=== PATIENT | male | born 1960 | race Caucasian/White ===

== ENCOUNTER 2022-07-15 08:00 | Outpatient (REF) | payer OTHER, SELFPAY ==
[2022-07-15 10:27] LABS: MANUAL DIFF FLAG NO
[2022-07-15 10:44] LABS: Basophils Percent Auto 0.5 % (0-2); Eosinophils Absolute Auto 0.1 X10*3/uL (0.0-0.4); Eosinophils Percent Auto 2.3 % (0-4); Hematocrit 47.6 % (42.0-52.0); Hemoglobin 16.1 g/dl (14.0-18.0); Imm Gran Abs Auto 0.02 X10*3/uL (0.00-0.03); Imm Gran Pct Auto 0.3 % (0.0-0.4); Lymphocytes Absolute Auto 1.5 X10*3/uL (1.2-4.9); Lymphocytes Percent Auto 26.4 % (20-40); Mean Corpuscular HGB Conc 33.8 g/dl (31.0-36.0); Mean Corpuscular Hemoglobin 30.3 pg (27.0-33.0); Mean Corpuscular Volume 89.6 fL (80.0-98.0); Mean Platelet Volume 9.5 fL (9.4-12.4); Monocytes Absolute Auto 0.5 X10*3/uL (0.1-1.2); Monocytes Percent Auto 9.4 % (2-11); Neutrophils Absolute Auto 3.5 x10*3/uL (2.0-8.3); Neutrophils Percent Auto 61.1 % (45-73); Platelet Count 235 X10*3/uL (160-400); Red Blood Count 5.31 X10*6/uL (4.60-5.80); Red Cell Distribution Width 12.4 % (11.0-16.0); White Blood Count 5.7 X10*3/uL (4.8-10.8)
[2022-07-15 10:46] LABS: Appearance Urine Clear; Color Urine Yellow; Glucose Urine UA Negative (Negative); Leukocyte Esterase Urine Negative (Negative); Nitrite Urine Negative (Negative); PH 5.5 (5.0-9.0); Specific Gravity - Urine 1.025 (1.005-1.025); Urine Blood Negative (Negative); Urine Ketones Negative (Negative); Urine Protein Negative (Neg-Trace)
[2022-07-15 11:00] LABS: Alanine Aminotransferase 19 U/L (0-40); Albumin Level 4.2 g/dL (3.5-5.0); Alkaline Phosphatase 62 U/L (39-117); Anion Gap 12 (12-20); Aspartate Amino Transferase 20 U/L (5-37); Bilirubin Total 1.4 mg/dL (0.0-1.0); Blood Urea Nitrogen 21 mg/dL (9-16); Calcium 9.2 mg/dL (8.4-10.2); Carbon Dioxide 27 mmol/L (22-29); Chloride 106 mmol/L (96-108); Cholesterol 252 mg/dL; Estimated Glomerular Filt Rate > 60; Glucose Fasting 89 mg/dL (60-99); HDL Cholesterol 56 mg/dL; LDL Cholesterol Calculated 177 mg/dl; Potassium 4.1 mmol/L (3.3-5.1); Sodium 141 mmol/L (135-145); Total Protein 6.4 g/dL (6.5-8.0); Triglycerides 95 mg/dL
[2022-07-15 11:19] LABS: Prostate Specific Antigen Scr 1.84 ng/mL (<0.05-4.0)
== END 2022-07-15 08:01 | disposition home or self-care (01) ==
LOC: HO.10HDL 08:00
PROVIDERS: Visit Provider Internal Medicine
DX: Z00.00 Encounter for general adult medical examination without abnormal findings (principal); Z12.5 Encounter for screening for malignant neoplasm of prostate
CPT/HCPCS: 36415; 80053; 80061; 81003; 84153; 85025

== ENCOUNTER 2023-03-20 12:14 | Day surgery (SDC) | payer OTHER, SELFPAY ==
--- NOTE | 2023-03-17 13:49 | P.CONAN_ITS ---
Documented by User: Stephanie Grove NP 03/17/23 13:50 HPI - Anesthesia Eval Consult details Narrative: 62yo M for Colonoscopy [facility] Past Medical History Medical History Kidney stones Surgical History Surgical History Hx of colonoscopy Social History Social History Patient Tobacco Use Status: Never used Tobacco Meds Allergies Allergy/AdvReac Type Severity Reaction Status Date / Time Penicillins Allergy Unknown Unknown Verified 03/16/23 14:12 Home Medications Medication Instructions Recorded Confirmed Last Taken Type No Known Home Meds 03/17/23 03/17/23 Unknown History Exam Exam Date and Time: March 17, 2023 134 Assessment and Plan Assessment Anesthesia Assessment: Chart Reviewed Documented by User: Margarita Moreau MD 03/20/23 13:17 [facility] Past Medical History Medical History Kidney stones Family History Family history of problems with anesthesia: No Surgical History Surgical History Hx of colonoscopy History of Problems with Anesthesia: No Social History Social History Patient Tobacco Use Status: Never used Tobacco Meds Allergies Allergy/AdvReac Type Severity Reaction Status Date / Time Penicillins Allergy Unknown Unknown Verified 03/16/23 14:12 Home Medications Medication Instructions Recorded Confirmed Last Taken Type No Known Home Meds 03/17/23 03/17/23 Unknown History Exam Height,Weight and Vital Signs: Height 5 ft 9 in Weight 86.183 kg Vital Signs Temp Pulse Resp BP Pulse Ox O2 Del Method 03/20/23 12:37 97.1 F 85 18 125/89 97 Room Air Airway Mallampati Class: II TM Dist: >3cm Neck ROM: Full Loose/Missing/Broken Teeth: Yes (Dental extractions. Crowns intact. Denies broken or loose teeth) Heart: RRR Lungs: CTAB Assessment and Plan Assessment Anesthesia Assessment: Anesthesia Plan Discussed Final Anesthetic Review Family History of Problems with Anesthesia: No History of Problems with Anesthesia: No NPO: Yes ASA Class: I Final Preanesthetic Review: No Changes in Pt Med Stat, Meds/Allgs Chart Reviewed, Consent Obtained/Reviewed and Anes Risks/Benef Reviewed Patient Risk: Low Procedure Risk: Low Assessment/Block/Sedation in SS: Assess/Block/Sedation-SS Anesthetic Plan Anesthetic Plan: MAC: Disposition: Standard PACU
[2023-03-20 12:23] VITALS: BMI 28.1
--- NOTE | 2023-03-20 12:29 | PC.NURSE ---
per pt, he spoke with [employer] library assistantreal estate sales manager services and he had uber transportation here and will have uber transportation home. text to Roseanne to confirm. Dr. Moreau aware and states pt can not uber home after anesthesia. Per pt, he has no other ride home. Dr. Moreau texted to Roseanne who is in meeting at this time
[2023-03-20 12:37] VITALS: BP 125/89; PULSE 85; RESP 18; TEMP 36.2; O2SAT 97
[2023-03-20 12:38] VITALS: BMI 28.1
[2023-03-20] MEDS: Lactated Ringers 1,000 ML 100 ML IVCONT (13:10)
--- NOTE | 2023-03-20 14:10 | PM.OP ---
Brief Operative Note Date of Service: 03/20/23 Pre-op diagnosis: Screening Post-op diagnosis: other (Diverticulosis) Procedure: Colonoscopy to the cecum and TI Surgeon: Maycol Eli MD Anesthesia: MAC Was an Threading Machine Feeder Automatic used for this Procedure?: No Estimated blood loss (mL): 0 Pathology: none sent Condition: stable Disposition: PACU
[2023-03-20 14:22] VITALS: BP 106/69; PULSE 90; RESP 20; TEMP 36.1; O2SAT 95
[2023-03-20 14:25] VITALS: BP 120/81; PULSE 80; RESP 20; TEMP 36.1; O2SAT 94
--- NOTE | 2023-03-20 23:21 | OP_ITS ---
DATE OF SERVICE: 03/20/2023 SURGEON: Maycol Eli MD INDICATIONS: The patient presents for evaluation of personal history of colon polyps, family history of colon cancer, and need for colorectal cancer screening. Full consent has been obtained from him for this, including risks of bleeding and perforation. PREOPERATIVE DIAGNOSIS: POSTOPERATIVE DIAGNOSIS: PROCEDURE PERFORMED: Colonoscopy to cecum and terminal ileum. ESTIMATED BLOOD LOSS: COMPLICATIONS: ANESTHESIA: Monitored anesthesia care. ASSISTANTS: SPECIMENS: PREOPERATIVE DIAGNOSES: Colorectal cancer screening, personal history of colon polyps, family history of colon cancer. POSTOPERATIVE DIAGNOSES: Colorectal cancer screening, personal history of colon polyps, family history of colon cancer, diverticulosis, and internal hemorrhoids. DESCRIPTION OF PROCEDURE: The patient was placed in the left lateral decubitus position. The digital rectal exam revealed no abnormalities. The Olympus video pediatric colonoscope was entered into the rectum and advanced easily to the cecum. Once in the cecum, I did identify normal-appearing cecal pouch with appendiceal orifice and a normal-appearing ileocecal valve. The terminal ileum was cannulated and appeared normal. The scope was withdrawn back in the colon. The entire cecum and ileocecal valve appeared normal. The scope was then slowly withdrawn assessing all mucosal surfaces carefully. Preparation was excellent. I did not visualize any sign of polyps, colitis, nor angiodysplasia. There was a mild amount of sigmoid diverticulosis. In the rectum, scope was retroflexed visualizing internal hemorrhoids, but no other pathology. The rectal mucosa appeared normal. The scope was straightened and withdrawn from the patient. He tolerated the procedure well and was returned to the recovery area in stable condition. IMPRESSION: 1. Diverticulosis. 2. Internal hemorrhoids. PLAN: I would recommend a repeat colonoscopy in 5 years for further screening and surveillance given his family history of colon cancer, and previous history of colon polyps. He will otherwise see me on a p.r.n. basis. MD BERENICE Villanueva/JOSÉ ANTONIO / [id number]
== END 2023-03-20 15:01 | disposition home or self-care (01) ==
PROVIDERS: PCP Internal Medicine; Visit Provider Internal Medicine
PROC: 0DJD8ZZ Inspection of Lower Intestinal Tract, Via Natural or Artificial Opening Endoscopic (ICD-10-PCS; CPT 45378; principal; 2023-03-20 13:40)
DX: Z12.11 Encounter for screening for malignant neoplasm of colon (principal); Z80.0 Family history of malignant neoplasm of digestive organs; Z86.010 Personal history of colon polyps; K57.30 Diverticulosis of large intestine without perforation or abscess without bleeding; K64.8 Other hemorrhoids; N20.0 Calculus of kidney; Z88.0 Allergy status to penicillin
CPT/HCPCS: 45378

== ENCOUNTER 2023-06-02 08:47 | Outpatient (REF) | payer OTHER, SELFPAY ==
[2023-06-02 10:55] LABS: Alanine Aminotransferase 19 U/L (0-40); Aspartate Amino Transferase 23 U/L (5-37); Cholesterol 232 mg/dL (<200); HDL Cholesterol 57 mg/dL (>40); LDL Cholesterol Calculated 158 mg/dL (<100); Triglycerides 87 mg/dL (<150)
== END 2023-06-02 08:48 | disposition home or self-care (01) ==
LOC: HO.LAB 08:47
PROVIDERS: PCP Internal Medicine; Visit Provider Internal Medicine
DX: M54.9 Dorsalgia, unspecified (principal); E78.00 Pure hypercholesterolemia, unspecified
CPT/HCPCS: 36415; 72100; 80061; 82550; 84450; 84460

== ENCOUNTER 2024-12-09 09:54 | Outpatient (REF) | payer OTHER, SELFPAY ==
[2024-12-09 11:07] LABS: MANUAL DIFF FLAG NO
[2024-12-09 11:56] LABS: Hematocrit 44.8 % (42.0-52.0); Hemoglobin 15.3 g/dl (14.0-18.0); Imm Gran Abs Auto 0.01 X10*3/uL (0.00-0.03); Imm Gran Pct Auto 0.2 % (0.0-0.4); Lymphocytes Absolute Auto 1.3 X10*3/uL (1.2-4.9); Mean Corpuscular HGB Conc 34.2 g/dl (31.0-36.0); Mean Corpuscular Hemoglobin 30.4 pg (27.0-33.0); Mean Corpuscular Volume 89.1 fL (80.0-98.0); NRBC Abs Auto 0.000 X10*3/uL (0.0-0.012); NRBC Pct Auto 0.0 /100WBC (0.0-0.2); Platelet Count 212 X10*3/uL (160-400); Red Blood Count 5.03 X10*6/uL (4.60-5.80); White Blood Count 4.7 X10*3/uL (4.8-10.8)
[2024-12-09 12:51] LABS: Hemoglobin A1C 143.3419 umol/L; Total Hemoglobin (HGBA1C) 4063.5248 umol/L
[2024-12-09 12:52] LABS: Prostate Specific Antigen 7.02 ng/mL (<0.05-4.0)
[2024-12-09 14:38] LABS: Alanine Aminotransferase 25 U/L (0-40); Albumin Level 4.4 g/dL (3.5-5.0); Alkaline Phosphatase 60 U/L (39-117); Anion Gap 13 (12-20); Aspartate Amino Transferase 37 U/L (5-37); Blood Urea Nitrogen 29 mg/dL (9-16); Calcium 8.8 mg/dL (8.4-10.2); Carbon Dioxide 24 mmol/L (22-29); Chloride 109 mmol/L (96-108); Cholesterol 229 mg/dL (<200); Estimated Glomerular Filt Rate > 60; HDL Cholesterol 55 mg/dL (>40); Potassium 3.8 mmol/L (3.3-5.1); Sodium 142 mmol/L (135-145); Total Protein 6.7 g/dL (6.5-8.0); Triglycerides 88 mg/dL (<150)
== END 2024-12-09 09:55 | disposition home or self-care (01) ==
LOC: HO.LAB 09:54
PROVIDERS: PCP Physician Assistant; Visit Provider Physician Assistant
DX: R73.03 Prediabetes (principal); E78.5 Hyperlipidemia, unspecified; R97.20 Elevated prostate specific antigen [PSA]; D64.9 Anemia, unspecified; Z12.5 Encounter for screening for malignant neoplasm of prostate
CPT/HCPCS: 36415; 80048; 80061; 80076; 83036; 84153; 85025; 96127

== ENCOUNTER 2024-12-09 09:54 | Outpatient (AMB) | payer OTHER, SELFPAY ==
--- NOTE | 2024-12-09 10:01 | A.OFFPC_ITS ---
Vital Signs 12/09/24 10:21 Height 5 ft 9 in Weight 92.533 kg BMI 30.1 BP 108/72 Blood Pressure Location Lt brachial Position Sitting Respiration 16 Pulse 72 Pulse Source Pulse Oximeter Temp 97.4 F Pulse Oximetry (%) 96 Oxygen Delivery Method Room Air Intake Visit Reasons: Routine/ Check for Pre-Diab Supervisor Blood Donor Recruiters Required: No Accompanied by: Self / Same As Patient Allergies Penicillins Allergy (Unknown, Verified 12/09/24 10:01) Unknown HPI HPI Comments History of Present Illness Details 64-year-old male with history of hyperli pidemia, nephrolithiasis, elevated PSA, and reported prediabetes presents to the office today for management of chronic conditions and to establish care. Nephrolithiasis-following with [facility]. Asymptomatic Hyperlipidemia-not on statin Elevated PSA-highest PSA level greater than 20, most recently was 8. Looking for repeat level. Following with [facility] and has upcoming appoin tment with Dr. Lr for prostate biopsy as MRI did show a prostate lesion. No known family history of prostate cancer. He was given a prescription for ciprofloxacin 500 mg to be taken 1 hour prior to procedure and 10 hours after. He has concerns about this medication given side effect profile. Prediabetes-reports his A1c was elevated at prior hospitalization and but is unclear on how high the elevation was. Concerns: As above Health maintenance: Last screening colonoscopy 03/2023 with 5 year follow-up advised ROS: General: No fevers, malaise, unintentional weight loss HEENT: No blurred vision, diplopia. No sore throat, nasal congestion, rhinorrhea, sinus pain, ear pain Cardiovascular: No chest pain, palpitations, or leg edema Respiratory: No shortness of breath, wheezing, cough GI: No abdominal pain, nausea, vomiting, diarrhea, constipation, melena, hematochezia : No dysuria, hematuria, increased urinary frequency, decreased urinary output MSK: No myalgia, back pain Neuro: No headaches, weakness, paresthesias Skin: No rashes or lesions EXAM: Constitutional - Awake and Alert, No apparent distress Eyes - PERRL Cardiovascular - S1S2, RRR, No edema Respiratory - Normal lung expansion, Normal respiratory effort, No respiratory distress, CTA bilaterally Extremities - no calf tenderness bilaterally, no swelling Skin - Warm/Dry Neurological - Alert & oriented x3 Psychological - Appropriate affect [facility] Medical History (Updated 12/09/24 @ 10:30 by DUSTY Tolliver) Anemia Prediabetes Elevated PSA HLD (hyperlipidemia) Kidney stones Surgical History (Updated 12/04/24 @ 16:17 by Almaz Person) Hx of colonoscopy (~03/20/23) Social History Patient Tobacco Use Status: Never used Tobacco Questionnaire PHQ-9 Over the last 2 weeks, how often have you been bothered by any of the following problems? 1. Little interest or pleasure in doing things: not at all 2. Feeling down, depressed, or hopeless: not at all 3. Trouble falling or staying asleep, or sleeping too much: not at all 4. Feeling tired or having little energy: not at all 5. Poor appetite or overeating: not at all 6. Feeling bad about yourself - or that you are a failure or have let yourself or your family down: not at all 7. Trouble concentrating on things, such as reading the newspaper or watching television: not at all 8. Moving or speaking so slowly that other people could have noticed. Or the opposite - being so fidgety or restless that you have been moving around a lot more than usual: not at all 9. Thoughts that you would be better off or of hurting yourself in some way: not at all Total score: 0 Depression Screening Interpretation: Negative Depression Screening Done: Yes 83072 - PHQ-9 Billing: Yes Source: Developed by Drs. Maycol Ayala, Monserrat Corrales, Contreras Duron and colleagues, with an educational agustina from [employer]. Thrive Questionnaire Date Thrive assessed: 12/09/24 I am a: Patient What is your living situation today?: I have a steady place to live Within the past 12 months, did the food you bought not last and you didn't have the money to get more?: Never true Within the past 12 months, did you worry whether your food would run out before you got money to buy more?: Never true Do you have trouble paying for medicines?: No Do you have trouble getting transportation to medical appointments?: No Do you have trouble paying your heating and electricity bill?: No Do you have trouble taking care of your child, family member or friend?: No Do you have trouble with day-to-day activities such as bathing, preparing meals, shopping, managing finances, etc.?: No Are you currently unemployed and looking for a job?: No Are you interested in more education?: No THRIVE Score: 0 BETITO-7 AMB Questionnaire BETITO-7 Date BETITO - 7 assessed: 12/09/24 Feeling nervous, anxious, or on edge: 1 = Several days Not being able to stop or control worryin = Not at all Worrying too much about different things: 0 = Not at all Trouble relaxin = Several days Being so restless that it is hard to sit still: 0 = Not at all Becoming easily annoyed or irritable: 1 = Several days Feeling afraid as if something awful might happen: 0 = Not at all Total BETITO-7 score (0-4 normal; 5-9 mild; 10-14 moderate; 15-21 severe): 3 Source: Developed by Drs. Maycol Ayala, Monserrat Corrales, Contreras Duron and colleagues, with an educational agustina from [employer]. BETITO-7 Assessment Billing BETITO-7 Assessment Tool: BETITO-7 Assessment 95650 Physical exam (Primary Care) Vital Signs: Last Vital Signs Temp 97.4 F 12/09/24 10:21 Pulse 72 12/09/24 10:21 Resp 16 12/09/24 10:21 BP 108/72 12/09/24 10:21 Pulse Ox 96 12/09/24 10:21 Oxygen Delivery Method Room Air 12/09/24 10:21 BMI result Body Mass Index 30.1 Tobacco/Smoking Status: Tobacco use Status Patient Tobacco Use Status Never used Tobacco 12/09/24 10:03 PHQ-9: PHQ-9 Score PHQ-9: Total score 0 12/09/24 10:37 Depression Screening Interpretation: Negative Thrive Assessment: Date of Thrive Assessment Date Thrive assessed 12/09/24 12/09/24 10:37 Coding Level of Care Code New Pt Level 4 (73043) Complex EM visit Add On G2211 Diagnoses HLD (hyperlipidemia) E78.5 Elevated PSA R97.20 Anemia D64.9 Prediabetes R73.03 Additional Codes BETITO-7 Assessment Billing - BETITO-7 Assessment Tool: BETITO-7 Assessment 57477 ([id number]) PHQ-9 - 45268 - PHQ-9 Billing: Yes ([id number]) Assessment & Plan Assessment & Plan (1) HLD (hyperlipidemia): Code(s): E78.5 - Hyperlipidemia, unspecified Category: Medical Plan: Lipid panel ordered. ASCVD risk score to be calculated pending results of studies. Recommend diet low in saturated fat and highlight processed foods (2) Elevated PSA: Code(s): R97.20 - Elevated prostate specific antigen [PSA] Category: Medical Plan: PSA to be repeated at patient request. He will continue following with [facility] and is advised to have records sent to our office for review. We did discuss ciprofloxacin including the risks versus benefits and did recommend he take this medication though can discuss further with his urologist if needed. (3) Anemia: Code(s): D64.9 - Anemia, unspecified Category: Medical Plan: CBC ordered (4) Prediabetes: Code(s): R73.03 - Prediabetes Category: Medical Plan: Hemoglobin A1c ordered Plan Follow-up in the office in 6 months. Labs to be completed following visit today Orders: Orders Hemoglobin A1c Today D64.9 - Anemia, unspecified, E78.5 - Hyperlipidemia, unspecified, R73.03 - Prediabetes, R97.20 - Elevated prostate specific antigen [PSA] Lipid Panel Today D64.9 - Anemia, unspecified, E78.5 - Hyperlipidemia, unspecified, R73.03 - Prediabetes, R97.20 - Elevated prostate specific antigen [PSA] Liver Panel Today D64.9 - Anemia, unspecified, E78.5 - Hyperlipidemia, unspecified, R73.03 - Prediabetes, R97.20 - Elevated prostate specific antigen [PSA] Basic Metabolic Panel Today D64.9 - Anemia, unspecified, E78.5 - Hyperlipidemia, unspecified, R73.03 - Prediabetes, R97.20 - Elevated prostate specific antigen [PSA] Complete Blood Count Auto Diff Today D64.9 - Anemia, unspecified, E78.5 - Hyperlipidemia, unspecified, R73.03 - Prediabetes, R97.20 - Elevated prostate specific antigen [PSA] Prostate Specific Antigen Today D64.9 - Anemia, unspecified, E78.5 - Hyperlipidemia, unspecified, R73.03 - Prediabetes, R97.20 - Elevated prostate specific antigen [PSA]
[2024-12-09 10:21] VITALS: BP 108/72; PULSE 72; RESP 16; TEMP 36.3; O2SAT 96; BMI 30.1
--- OUTSIDE RECORDS SUMMARY | 2024-12-09 10:29 | XMS_ITS | Clinical Summary ---
Author Organization [facility] [address] [facility] Address [address] [place] [address] Phone Care Team Providers Care Family And Divorce Legal Assistant Name Role Phone Farhat Fishman MD Primary Care Provider [phone] Social History Tobacco Use Types Packs/Day Years Used Date Smoking Tobacco: Never Assessed Sex and Gender Information Value Date Recorded Sex Assigned at Not on file Legal Sex Male 1:11 PM EST Gender Identity Not on file Sexual Orientation Not on file Plan of Treatment Health Maintenance Due Date Last Done Comments DTaP,Tdap,and Td Vaccines (1 - Tdap) 1979 Pneumococcal Vaccine: 50+ Ye ars (1 of 1 - PCV) 2010 Zoster Vaccines (1 of 2) 2010 COVID-19 Vaccine ( - 2023-2 5 season) 2024 Cholesterol Screening (Lipid Panel) 07/18/2024 Colorectal Cancer Screening: Colonoscopy 07/18/2024 Depression Screening 07/18/2024 HIV Screening 07/18/2024 Hepatitis C Screening 07/18/2024 Medicare Annual Wellness Visit 07/18/2024 Social Influencers of Health Screening 07/18/2024 Influenza Vaccine (Season Ended) 2025 RSV Immunization Adult Patie nts (1 - 1-dose 75+ series) 2035 HIB Vaccines Aged Out No longer eligi ble based on patient's age to complete this topic HPV Vaccines Aged Out No longer eligi ble based on patient's age to complete this topic Hepatitis A Vaccines Aged Out No long er eligible based on patient's age to complete this topic Hepatitis B Vaccines Aged Out No long er eligible based on patient's age to complete this topic IPV Vaccines Aged Out No longer eligi ble based on patient's age to complete this topic MMR Vaccines Aged Out No longer eligi ble based on patient's age to complete this topic Meningococcal ACWY Vaccine Aged Out N o longer eligible based on patient's age to complete this topic Meningococcal B Vaccine Aged Out No l onger eligible based on patient's age to complete this topic Pneumococcal Vaccine: Pediat rics (0 to 5 Years) and At-Risk Patients (6 to 64 Years) Aged Out No longer eligible b ased on patient's age to complete this topic RSV Immunization Patients Un melissa 20 months Aged Out No longer eligible b ased on patient's age to complete this topic Varicella Vaccines Aged Out No longer eligible based on patient's age to complete this topic Insurance [employer] MEDICARE Care Teams Family And Divorce Legal Assistant Relationship Specialty Start Date End Date aFrhat Fishman MD [address] [place] [address] Dr Fritz MA PCP - General Internal Medicine 07/17/24
--- OUTSIDE RECORDS SUMMARY | 2024-12-09 10:29 | XMS_ITS | Patient Health Record ---
Author Organization [facility] Address [address] [place] [address] Care Team Providers Care Cutter Banana Room Name Role Phone Farhat Fishman MD Primary Care Provider Maycol De Oliveira Unavailable [phone] Allergies Allergen (clinical drug ingredient) Drug/Non Drug Allergy documented on EMR Reaction Allergy Type Onset Date Status Penicillin Unknown Drug Allergy Active Reason For Referral No Information Immunizations Vaccine Route Administration Date Status Comme nts Influenza Unknown 03/22/2022 Administered Social History Tobacco Use: Social History Observation Description Date Details (start date - stop date) Never Smoker NA - NA Tobacco Use/Smoking Question Answer Notes Patient is a nonsmoker Alcohol Screen Question Answer Notes Did you have a drink contain ing alcohol in the past year? Yes How often did you have a dri nk containing alcohol in the past year? 2 to 4 times a month (2 points) How many drinks did you have on a typical day when you were drinking in the past year? 1 or 2 drinks (0 point) How often did you have 6 or more drinks on one occasion in the past year? Never (0 point) Points 2 Interpretation Negative Section Notes: No sig alcohol, nonsmoker Problems Problem Type SNOMED Code ICD Code Onset Dates Problem Status W/U Status Risk Notes Problem 547680208 Colon cancer screening (Z12.11) Active confirmed Problem History of polyp of colon (situation) (017088663) Personal history of colonic polyps (Z86.010) Active confirmed Problem Diverticular disease of colon (440774235) Diverticulosis of large intestine without perforation or abscess without bleeding (K57.30) Active confirmed Problem [id number] Preprocedural examination (Z01.818) Active confirmed Problem 247284716 History of colon polyps (Z86.010) Active confirmed Problem 106923687 Family history o f colon cancer (Z80.0) Active confirmed Plan Of Treatment Future Test Test Name Order Date COLONOSCOPY 11/17/2022 Insurance Providers Payer Name Payer Address Payer Phone Subscriber Number Group Number Insured Name Patient Relationship to Insured Coverage Start Date Coverage End Date [facility] [address] [address] [place] [address] [phone] [id number] SHIRA ALBERTO Self - patient is the insured Medical (General) History Medical History History ICD Code Denies OR,DM,CVA,Lung disease,renal dise ase Kidney stones Colonoscopy 2018 at [facility]--some small polyps removed and told to repeat a colonoscopy in 5 years Surgical History Surgery Date(Month/Year)
== END 2024-12-09 10:37 | disposition home or self-care (01) ==
LOC: HO.HMCHD 09:54
PROVIDERS: PCP Physician Assistant; Visit Provider Physician Assistant
DX: E78.5 Hyperlipidemia, unspecified (principal); R97.20 Elevated prostate specific antigen [PSA]; D64.9 Anemia, unspecified; R73.03 Prediabetes

== ENCOUNTER 2025-03-28 08:57 | Outpatient (AMB) | payer OTHER, SELFPAY ==
--- NOTE | 2025-03-28 08:50 | A.OFFPC_ITS ---
Vital Signs 03/28/25 08:51 Height 5 ft 9 in Weight 93.95 kg BMI 30.6 BP 120/80 Blood Pressure Location Lt brachial Position Sitting Pulse 66 Pulse Source Pulse Oximeter Temp 97.9 F Temp Source Temporal Artery Scan Pulse Oximetry (%) 95 Oxygen Delivery Method Room Air Intake Visit Reasons: Infection right index fingernail (see comments) Dissolver Operator Required: No Accompanied by: Self / Same As Patient Allergies Penicillins Allergy (Unknown, Verified 03/28/25 08:51) Unknown Medication List - Last Reconciled 03/28/25 by DUSTY Tolliver clotrimazole-betamethasone 1-0.05 % 1 appl topical BID Tobacco use date assessed: 03/28/25 Fall risk assessment: No Falls in past year Last assessed Fall Risk: 03/28/25 Dental Screening Dental Screen Date: 03/28/25 Did you have a dental visit in the last 12 months?: Yes Did you have a dental problem in the last 6 months where you did not have access to dental care?: No HPI HPI Comments History of Present Illness Details 64-year-old male without any significant past medical history presents to the office for evaluation. Recurrent infection of the right index finger-for the last few years has had a recurrent lesion of the nail and nailbed. There is scabbing, the nail turns black intermittently. Occasionally swelling and painful. He has seen a total of 4 operations trainer both at [facility] and field. He states they have never biopsied the area nor has a nail been removed. He has been trialed on Bactrim, doxycycline, topical clindamycin and topical Bactroban as well as triamcinolone. He denies any trauma or known triggers. 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 Has developed an atypical shape as well as color and is very pruritic. No drainage. Denies any history of significant sun exposure. No exposure to noxious substances. ROS: General: No fevers, malaise, unintentional weight loss HEENT: No blurred vision, diplopia. No sore throat, nasal congestion, rhinorrhea, sinus pain, ear pain Cardiovascular: No chest pain, palpitations, or leg edema Respiratory: No shortness of breath, wheezing, cough GI: No abdominal pain, nausea, vomiting, diarrhea, constipation, melena, hematochezia : No dysuria, hematuria, increased urinary frequency, decreased urinary output MSK: No myalgia, back pain Neuro: No headaches, weakness, paresthesias Skin: No rashes or lesions EXAM: Constitutional - Awake and Alert, No apparent distress Eyes - PERRL Cardiovascular - S1S2, RRR, No edema Respiratory - Normal lung expansion, Normal respiratory effort, No respiratory distress, CTA bilaterally Extremities - no calf tenderness bilaterally, no swelling Skin - Warm/Dry. Mild faint erythema of the nailbed of the R index finger. There is a [id number] linear lesion exending from the nailbed into the nail. There is an irregularly shaped 3mm x 4mm nevus with brown discoloration superiorly Neurological - Alert & oriented x3 Psychological - Appropriate affect [facility] Medical History Anemia Prediabetes Elevated PSA HLD (hyperlipidemia) Kidney stones Surgical History Hx of colonoscopy (~03/20/23) Family History (Updated 03/28/25 @ 09:06 by Miriam Jennings MA) Mother No problems noted. Father No problems noted. Social History Housing: House Patient Tobacco Use Status: Never used Tobacco e-Cigarette/Vaping Use: Never Used service: No Current occupational status: retired Cognitive needs: No Hearing needs: No Vision needs: Yes (Reading glasses) Questionnaire PHQ-9 Over the last 2 weeks, how often have you been bothered by any of the following problems? 1. Little interest or pleasure in doing things: not at all 2. Feeling down, depressed, or hopeless: not at all 3. Trouble falling or staying asleep, or sleeping too much: not at all 4. Feeling tired or having little energy: not at all 5. Poor appetite or overeating: not at all 6. Feeling bad about yourself - or that you are a failure or have let yourself or your family down: not at all 7. Trouble concentrating on things, such as reading the newspaper or watching television: not at all 8. Moving or speaking so slowly that other people could have noticed. Or the opposite - being so fidgety or restless that you have been moving around a lot more than usual: not at all 9. Thoughts that you would be better off or of hurting yourself in some way: not at all Total score: 0 Source: Developed by Drs. Maycol Ayala, Monserrat Corrales, Contreras Duron and colleagues, with an educational agustina from [employer]. Thrive Questionnaire Date Thrive assessed: 03/28/25 I am a: Patient Within the past 12 months, did the food you bought not last and you didn't have the money to get more?: Never true Within the past 12 months, did you worry whether your food would run out before you got money to buy more?: Never true Do you have trouble paying for medicines?: No Do you have trouble getting transportation to medical appointments?: No Do you have trouble paying your heating and electricity bill?: No Do you have trouble taking care of your child, family member or friend?: No Do you have trouble with day-to-day activities such as bathing, preparing meals, shopping, managing finances, etc.?: No Are you currently unemployed and looking for a job?: No Are you interested in more education?: No THRIVE Score: 0 AUDIT C Alcohol Use Questionnaire (AUDIT-C) 1. How often do you have a drink containing alcohol?: Monthly or less 2. How many drinks containing alcohol do you have on a typical day when you are drinking?: 1 or 2 3. How often do you have six or more drinks on one occasion?: Less than monthly Total Score: 2 BETITO-7 AMB Questionnaire BETITO-7 Date BETITO - 7 assessed: 03/28/25 Feeling nervous, anxious, or on edge: 0 = Not at all Not being able to stop or control worryin = Not at all Worrying too much about different things: 0 = Not at all Trouble relaxin = Not at all Being so restless that it is hard to sit still: 0 = Not at all Becoming easily annoyed or irritable: 0 = Not at all Feeling afraid as if something awful might happen: 0 = Not at all Total BETITO-7 score (0-4 normal; 5-9 mild; 10-14 moderate; 15-21 severe): 0 Source: Developed by Drs. Maycol Ayala, Monserrat Corrales, Contreras Duron and colleagues, with an educational agustina from [employer]. Physical exam (Primary Care) Vital Signs: Last Vital Signs Temp 97.9 F 03/28/25 08:51 Pulse 66 03/28/25 08:51 BP 120/80 03/28/25 08:51 Pulse Ox 95 03/28/25 08:51 Oxygen Delivery Method Room Air 03/28/25 08:51 BMI result Body Mass Index 30.6 Tobacco/Smoking Status: Tobacco use Status Tobacco use date assessed 03/28/25 03/28/25 08:52 Patient Tobacco Use Status Never used Tobacco 03/28/25 08:52 e-Cigarette/Vaping Use Never Used 03/28/25 08:52 PHQ-9: PHQ-9 Score PHQ-9: Total score 0 03/28/25 08:52 Thrive Assessment: Date of Thrive Assessment Date Thrive assessed 03/28/25 03/28/25 08:52 Coding Level of Care Code Est Pt Level 4 (53318) Diagnoses 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 Possible recurrent paronychia however seems less likely given lesion extending into the nail itself. Has not trialed antifungal. Clotrimazole-betamethasone on cream ordered and he is referred to Dermatology for further evaluation as well as consideration for biopsy Plan Follow-up for annual physical exam Orders: Referrals Dermatology Referral D22.5 - Melanocytic nevi of trunk, L03.011 - Cellulitis of right finger Medications: New clotrimazole-betamethasone 1-0.05 % 1 appl topical BID 45 grams 0RF
[2025-03-28 08:51] VITALS: BP 120/80; PULSE 66; TEMP 36.6; O2SAT 95; BMI 30.6
--- OUTSIDE RECORDS SUMMARY | 2025-03-28 09:43 | XMS_ITS | Encounter Summary ---
Author Organization [facility] Address [address] [place] [address] Care Team Providers Care Railroad Signal Operator Name Role Phone Farhat Fishman MD Primary Care Provider [phone] Encounter Details Date Type Department Care Team (Late st Contact Info) Description 01/01/2025 Lab Requisition [facility] - Main Lab [address] [facility] [place] [address] Nando Gardner MD [address] [place] [address] Elevated prostate specific antigen (PSA) Social History Tobacco Use Types Packs/Day Years Used Date Smoking Tobacco: Never Assessed Sex and Gender Information Value Date Recorded Sex Assigned at Not on file Legal Sex Male 1:11 PM EST Gender Identity Not on file Sexual Orientation Not on file documented as of this encounter Plan of Treatment Not on file documented as of this encounter Procedures Procedure Name Priority Date/Time Associated Diagnosis Comments TISSUE EXAM Routine 12/31/2024 Elevated prostate specific antigen (PSA) documented in this encounter Results * Tissue Exam (12/31/2024) Final Diagnosis A. Prostate, Left Mid Cecil Biopsy: - Benign prostatic tissue. B. Prostate, Left Lat Cecil Biopsy: - Benign prostatic tissue. C. Prostate, Left Mid Mid Biopsy: - Benign prostatic tissue. D. Prostate, Left Lat Mid Biopsy: - Benign prostatic tissue. E. Prostate, Left Mid Base Biopsy: - Benign prostatic tissue. F. Prostate, Left Lat Base Biopsy: - Benign prostatic tissue. G. Prostate, Left Peripheral Zone Lesion Biopsy: - Benign prostatic tissue. H. Prostate, Right Mid Cecil Biopsy: - Benign prostatic tissue. I. Prostate, Right Lat Cecil Biopsy: - Benign prostatic tissue. J. Prostate, Right Mid Mid Biopsy: - Benign prostatic tissue. K. Prostate, Right Lat Mid Biopsy: - Benign prostatic tissue. L. Prostate, Right Mid Base Biopsy: - Benign prostatic tissue. M. Prostate, Right Lat Base Biopsy: - Benign prostatic tissue. 01/03/2025 4:13 PM EDT [facility] Clinical Information Elevated PSA Last PSA total = 7.8 (10/14/2024) PSA free: 0.91 (10/14/2024) [id number] 01/03/2025 4:13 PM EDT [facility] Gross Description A. Prostate, Left Mid Cecil Biopsy: Received, properly labeled, are two H and E stained slides and two unstained slides. B. Prostate, Left Lat Cecil Biopsy: Received, properly labeled, are two H and E stained slides and two unstained slides. C. Prostate, Left Mid Mid Biopsy: Received, properly labeled, are two H and E stained slides and two unstained slides. D. Prostate, Left Lat Mid Biopsy: Received, properly labeled, are two H and E stained slides and two unstained slides. E. Prostate, Left Mid Base Biopsy: Received, properly labeled, are two H and E stained slides and two unstained slides. F. Prostate, Left Lat Base Biopsy: Received, properly labeled, are two H and E stained slides and two unstained slides. G. Prostate, Left Peripheral Zone Lesion Biopsy: Received, properly labeled, are two H and E stained slides and two unstained slides. H. Prostate, Right Mid Cecil Biopsy: Received, properly labeled, are two H and E stained slides and two unstained slides. I. Prostate, Right Lat Cecil Biopsy: Received, properly labeled, are two H and E stained slides and two unstained slides. J. Prostate, Right Mid Mid Biopsy: Received, properly labeled, are two H and E stained slides and two unstained slides. M. Prostate, Right Lat Base Biopsy: Received, properly labeled, are two H and E stained slides and two unstained slides. /al 01/03/2025 4:13 PM EDT [facility] Disclaimer Unless otherwise specified, all tissue is 10% NB formalin fixed and paraffin embedded. Technical pathology services provided by [facility] at [address] [facility] [address], [place] [address] (CLIA #[id number]/S edgar Araujo MD, Clerk Carrier) 01/03/2025 4:13 PM EDT [facility] Tissue Prostate / Unknown 12/31/20242024 3:27 PM EDT Tissue specimen (specimen) Prostate / Unknown 12/31/2024 01/01/2025 3: 27 PM EDT Tissue specimen (specimen) Prostate / Unknown 12/31/2024 01/01/2025 3: 27 PM EDT Tissue specimen (specimen) Prostate / Unknown 12/31/2024 01/01/2025 3: 27 PM EDT Tissue specimen (specimen) Prostate / Unknown 12/31/2024 01/01/2025 3: 27 PM EDT Tissue specimen (specimen) Prostate / Unknown 12/31/2024 01/01/2025 3: 27 PM EDT Tissue specimen (specimen) Prostate / Unknown 12/31/2024 01/01/2025 3: 27 PM EDT Tissue specimen (specimen) Prostate / Unknown 12/31/2024 01/01/2025 3: 27 PM EDT Tissue specimen (specimen) Prostate / Unknown 12/31/2024 01/01/2025 3: 27 PM EDT Tissue specimen (specimen) Prostate / Unknown 12/31/2024 01/01/2025 3: 27 PM EDT Tissue specimen (specimen) Prostate / Unknown 12/31/2024 01/01/2025 3: 27 PM EDT Tissue specimen (specimen) Prostate / Unknown 12/31/2024 01/01/2025 3: 27 PM EDT Tissue specimen (specimen) Prostate / Unknown 12/31/2024 01/01/2025 3: 27 PM EDT us Nando Gardner MD LAB PATHOLOGY ORDERABLES Final Result [facility] [address] [place] [address], documented in this encounter Visit Diagnoses Diagnosis Elevated prostate specific antigen (PSA) documented in this encounter Care Teams Railroad Signal Operator Relationship Specialty Start Date End Date Frahat Fishman MD [address] [place] [address] Dr Fritz [place] PCP - General Internal Medicine 07/17/24 documented as of this encounter
--- OUTSIDE RECORDS SUMMARY | 2025-03-28 09:43 | XMS_ITS | Encounter Summary ---
Author Organization [facility] Address [address] [place] [address] Care Team Providers Care Paratransit Operator Name Role Phone Farhat Fishman MD Primary Care Provider [phone] Encounter Details Date Type Department Care Team (Late st Contact Info) Description 07/17/2024 Lab Requisition [facility] - Main Lab [address] [facility] [place] [address] Jc Lr MD [address] [place] [address] Personal history of urinary calculi Social History Tobacco Use Types Packs/Day Years [...] Procedure Name Priority Date/Time Associated Diagnosis Comments STONE ANALYSIS Routine 07/17/2024 9:00 AM EST Personal history of urinary calculi documented in this encounter Results * Stone analysis (07/17/2024 9:00 AM EST) Component(s) See below 07/23/2024 9:57 PM EST [facility] Comment: 97% Calcium oxalate monohydrate (Whewellite) 3% Uric acid anhydrous Stone Weight 0.0219 g 07/23/2024 9:57 PM EST [facility] Comment: This test was developed and its performance characteristics determined by [facility] in a manner consistent with CLIA requirements. This test has not been cleared or approved by the U.S. Food and Drug Administration. Test performed at [facility], [address], [place] [address] Clementine Hobson MD, PhD - Programmer Or Analyst Calculus 07/17/2024 9:00 AM EST 07/17/2024 1:15 PM EST us Jc Lr MD LAB BODY FLUIDS AND STOOLS ORDERABLES Final Result Performing Organization Address City/State/[facility] Co de Phone Number [facility] [address] [place] [address] documented in this encounter Visit Diagnoses Diagnosis Personal history of urinary calculi documented in this encounter Care Teams Paratransit Operator Relationship Specialty Start Date End Date Farhat Fishman MD [address] [place] [address] Dr Fritz [place] PCP - General Internal Medicine 07/17/24 documented as of this encounter
--- OUTSIDE RECORDS SUMMARY | 2025-03-28 09:43 | XMS_ITS | Patient Health Record ---
Author Organization [facility] Address [address] [place] [address] Care Team Providers Care Loom Fixer Name Role Phone Sravanthi (RETIRED) Farhat SOLANO Primary Care Provide r Unavailable Maycol Eli Unavailable [phone] Allergies Allergen (clinical drug ingredient) Drug/Non Drug Allergy documented on EMR Reaction Allergy Type Onset Date Status Information temporarily unavailable Penicillin Unknown Drug Allergy Active Reason For [...] Problem Status W/U Status Risk Notes Problem Information temporarily unavailable Colon cancer screening (Z12.11) Active confirmed Problem Information temporarily unavailable Personal history of colonic polyps (Z86.010) Active confirmed Problem Information temporarily unavailable Diverticulosis of large intestine without perforation or abscess without bleeding (K57.30) Active confirmed Problem Information temporarily unavailable Preprocedural examination (Z01.818) Active confirmed Problem Information temporarily unavailable History of colon polyps (Z86.010) Active confirmed Problem Information temporarily unavailable Family history of colon cancer (Z80.0) Active confirmed Plan Of Treatment Future Test Test Name Order Date COLONOSCOPY 11/17/2022 Insurance Providers Payer Name Payer Address Payer Phone Subscriber Number Group Number Insured Name Patient Relationship to Insured Coverage Start Date Coverage End Date [facility] [address] [address] [place] [address] [phone] [id number] SHIRA ALBERTO Self - patient is the insured Medical (General) History Medical History History ICD Code Denies [place],DM,CVA,Lung disease,renal dise ase Kidney stones Colonoscopy 2017 at [facility]--some small polyps removed and told to repeat a colonoscopy in 5 years Surgical History Surgery Date(Month/Year)
--- OUTSIDE RECORDS SUMMARY | 2025-03-28 09:43 | XMS_ITS | Clinical Summary ---
Author Organization [facility] Address [address] [place] [address] Phone Care Team Providers Care Radiology Scheduler Name Role Phone Farhat Fishman MD Primary Care Provider [phone] Encounters Date Type Department Care Team Description 01/01/2025 Lab Requisition [facility] - Main Lab [address] [facility] [place] [address] Nando Gardner MD Elevated prostate specific antigen (PSA) from Last 3 Months Social History Tobacco Use Types Packs/Day Years Used Date Smoking Tobacco: Never Assessed Sex and Gender Information Value Date Recorded Sex Assigned at Not on file Legal Sex Male 1:11 PM EST Gender Identity Not on file Sexual Orientation Not on file Plan of Treatment Health Maintenance Due Date Last Done Comments Colorectal Cancer Screening: Colonoscopy 1960 DTaP,Tdap,and Td Vaccines (1 - Tdap) 1979 Pneumococcal Vaccine: 50+ Ye ars (1 of 1 - PCV) 2010 Zoster Vaccines (1 of 2) 2010 Depression Screening 06/05/2024 Cholesterol Screening (Lipid Panel) 07/18/2024 HIV Screening 07/18/2024 Hepatitis C Screening 07/18/2024 Medicare Annual Wellness Visit 07/18/2024 Social Influencers of Health Screening 07/18/2024 COVID-19 Vaccine ( - 2023-2 5 season) 2025 Influenza Vaccine (#1) 2025 RSV Immunization Adult Patie nts (1 [...] on patient's age to complete this topic Procedures Procedure Name Priority Date/Time Associated Diagnosis Comments TISSUE EXAM Routine 12/31/2024 Elevated prostate specific antigen (PSA) from Last 3 Months Results * Tissue Exam (12/31/2024) Final Diagnosis A. Prostate, Left Mid Wittmann Biopsy: - Benign prostatic tissue. B. Prostate, Left Lat Wittmann Biopsy: - Benign prostatic tissue. C. Prostate, Left Mid Mid Biopsy: - Benign prostatic tissue. D. Prostate, Left Lat Mid Biopsy: - Benign prostatic tissue. E. Prostate, Left Mid Base Biopsy: - Benign prostatic tissue. F. Prostate, Left Lat Base Biopsy: - Benign prostatic tissue. G. Prostate, Left Peripheral Zone Lesion Biopsy: - Benign prostatic tissue. H. Prostate, Right Mid Wittmann Biopsy: - Benign prostatic tissue. I. Prostate, Right Lat Wittmann Biopsy: - Benign prostatic tissue. J. Prostate, Right Mid Mid Biopsy: - Benign prostatic tissue. K. Prostate, Right Lat Mid Biopsy: - Benign prostatic tissue. L. Prostate, Right Mid Base Biopsy: - Benign prostatic tissue. M. Prostate, Right Lat Base Biopsy: - Benign prostatic tissue. 01/03/2025 4:13 PM EDT [facility] Clinical Information Elevated PSA Last PSA total = 7.8 (10/14/2024) PSA free: 0.91 (10/14/2024) [id number] 01/03/2025 4:13 PM EDT [facility] Gross Description A. Prostate, Left Mid Wittmann Biopsy: Received, properly labeled, are two H and E stained slides and two unstained slides. B. Prostate, Left Lat Wittmann Biopsy: Received, properly labeled, are two H [...] two unstained slides. H. Prostate, Right Mid Wittmann Biopsy: Received, properly labeled, are two H and E stained slides and two unstained slides. I. Prostate, Right Lat Wittmann Biopsy: Received, properly labeled, are two H and E stained slides and two unstained slides. J. Prostate, Right Mid Mid Biopsy: Received, properly labeled, are two H and E stained slides and two unstained slides. M. Prostate, Right Lat Base Biopsy: Received, properly labeled, are two H and E stained slides and two unstained slides. /al 01/03/2025 4:13 PM T [facility] Disclaimer Unless otherwise specified, all tissue is 10% NB formalin fixed and paraffin embedded. Technical pathology services provided by [facility] at [address] [place] [address] [address], [place] [address] (CLIA #[id number]/S edgar Araujo MD, Fourchette Sewer) 01/03/2025 4:13 PM T [facility] Tissue Prostate / Unknown [...] Unknown 12/31/2024 01/01/2025 3: 27 PM EDT Nando Gardner MD LAB PATHOLOGY ORDERABLES Final Result Performing Organization Address City/State/[facility] Co de Phone Number [facility] [address] [place] [address], from Last 3 Months Insurance [facility] MEDICARE Care Teams Radiology Scheduler Relationship Specialty Start Date End Date Farhat Fishman MD [address] [place] [address] Dr Fritz [place] PCP - General Internal Medicine 07/17/24
== END 2025-03-28 09:30 | disposition home or self-care (01) ==
LOC: HO.HMCHD 08:57
PROVIDERS: PCP Physician Assistant; Visit Provider Physician Assistant
DX: D22.5 Melanocytic nevi of trunk (principal); L03.011 Cellulitis of right finger